=== PATIENT | male | born 1970 | race Two or more races ===

== ENCOUNTER 2016-12-25 09:47 | Emergency (ER) | payer SELFPAY ==
--- NOTE | 2016-12-25 13:21 | US ---
Exam: Limited soft tissue ultrasound COMPARISON: None INDICATION: Soft tissue swelling anterior to left cheek. Recent puncture with branch. Findings: Focused ultrasound evaluation in the region of swelling and erythema beneath the medial left eye and along the superomedial aspect of the cheek was performed. There is a 0.7 x 0.7 mm echogenic focus approximately 2 mm deep to the skin surface which is suspicious for a small foreign body. There is some phlegmonous change seen about this region without a well-defined fluid collection. The foreign body is located approximately 1 cm medial to the incision. IMPRESSION: Submillimeter foreign body is identified as above. Findings called to Dr. Henriquez 1310 hours 12/25/2016.
== END 2016-12-25 13:49 | disposition home or self-care (01) ==
LOC: ED 09:47
DX: S01.84XA Puncture wound with foreign body of other part of head, initial encounter (principal); W45.8XXA Other foreign body or object entering through skin, initial encounter; Y93.H9 Activity, other involving exterior property and land maintenance, building and construction; Y92.89 Other specified places as the place of occurrence of the external cause; Y99.0 Civilian activity done for income or pay